=== PATIENT | female | born 1955 | race African-American/Black ===

== ENCOUNTER 2020-10-23 00:37 | Emergency (ER) | payer MEDICARE, MEDICAID ==
[~2020-10-23] VITALS: Ht 167.6 cm; Wt 68.0 kg
[2020-10-23 00:37] VITALS: BP 167/64
[~2020-10-23 00:37] MED LIST: AML5T PO; BENA20TA14 PO; NOR7.5T PO; OMEP20CA74 PO; PREG25CA PO; SOLI5TAB6 PO; TERI14TA OR; TIZA4CAP7 PO
[2020-10-23 04:25] LABS: Urine Bacteria MANY /hpf (None Seen); Urine Blood Negative /uL (Negative); Urine Mucus FEW (None Seen); Urine Specific Gravity 1.018 (1.001-1.035); Urine WBC 269 /hpf (0 - 5)
[2020-10-23] MEDS ORDERED: cefTRIAXone 1GM/50ML D5W 50 ML IV ONE (05:15)
[2020-10-23] MEDS ORDERED: SODIUM CHLORIDE 0.9% 1,000 ML IV ONE (05:15)
[2020-10-23] MEDS ORDERED: CIPROFLOXACIN 400MG/200ML 200 ML IV ONE (05:15)
== END 2020-10-23 06:48 | disposition home or self-care (01) ==
LOC: ER 00:38
DX: N39.0 Urinary tract infection, site not specified (principal); G35 Multiple sclerosis; I10 Essential (primary) hypertension; Z87.891 Personal history of nicotine dependence
CPT/HCPCS: 81001; 96365; 96368; 99284; J0696; J0744

== ENCOUNTER 2021-02-17 23:11 | Inpatient (IN) | payer MEDICARE, MEDICAID ==
[~2021-02-17] VITALS: Ht 175.3 cm; Wt 57.1 kg
[2021-02-18 00:48] LABS: Lymphocytes # (auto) 0.6 10 ^3/uL (0.4-5.4); Monocytes # (auto) 0.4 10 ^3/uL (0-1.3); Red Blood Cells 3.93 10^6/uL (4.0-5.20)
[2021-02-18 00:51] LABS: Basophils # (auto) 0 10 ^3/uL (0-0.2); Basophils % (auto) 0.8 % (0.0-2.0); Eosinophils # (auto) 0.1 10 ^3/uL (0-0.8); Hematocrit 32.1 % (36.0-46.0); Hemoglobin 10.5 g/dL (12.2-16.2); Lymphocytes % (auto) 11.7 % (10.0-50.0); Mean Corpuscular Hemoglobin 26.8 pg (28.0-32.0); Mean Corpuscular Hgb Conc. 32.8 g/dL (32.0-36.0); Mean Corpuscular Volume 81.7 fL (80.0-100.0); Neutrophils # (auto) 4.2 10 ^3/uL (1.6-8.6); Neutrophils % (auto) 79.5 % (37.0-80.0); Nucleated Red Blood Cells % 0.1 %; Red Cell Distribution Width 16.8 % (11.8-14.3); White Blood Cell 5.2 10^3/uL (4.4-10.8)
[2021-02-18 00:59] LABS: Alanine Aminotransferase 229 U/L (13-56); Albumin 2.6 g/dL (3.4-5.0); Anion Gap 4 (5-15); Aspartate Aminotransferase 199 U/L (15-37); BUN/Creatinine Ratio 25.5; Blood Urea Nitrogen 14 mg/dL (7-18); Calcium 9.4 mg/dL (8.5-10.1); Carbon Dioxide 26 mmol/L (21-32); Chloride 111 mmol/L (98-107); GFR African American 144 mL/min; GFR Non-African American 119 mL/min; Glucose 70 mg/dL (74-106); Lipase 73 U/L (73-393); Magnesium 1.9 mg/dL (1.6-2.6); Potassium 4.9 mmol/L (3.5-5.1); Sodium 141 mmol/L (136-145)
[2021-02-18 01:05] LABS: Alkaline Phosphatase 318 U/L (45-117); Bilirubin, Total 0.5 mg/dL (0.2-1.0); Total Protein 7.1 g/dL (6.4-8.2)
[2021-02-18] MEDS ORDERED: IOHEXOL 300 MG/ML 100ML BOTTLE IJ ONE (01:37)
[2021-02-18] MEDS ORDERED: SODIUM CHLORIDE 0.9% 1,000 ML IV ONE (02:30)
[2021-02-18] MEDS ORDERED: CEFEPIME 2 GM in SODIUM CHL 0.9% 50 ML IV ONE (02:30)
[2021-02-18] MEDS ORDERED: VANCOMYCIN 1GM/250ML 250 ML IV ONE (02:30)
[2021-02-18 02:42] LABS: Alcohol, Urine < 3.0 mg/dL (0-10); Amphetamine Screen, Urine NEGATIVE (NEGATIVE); Barbiturate Scree,Urine NEGATIVE (NEGATIVE); Benzodiazephine Screen, Urine NEGATIVE (NEGATIVE); Cannabinoid Screen, Urine NEGATIVE (NEGATIVE); Cocaine Screen, Urine NEGATIVE (NEGATIVE); Opiate Scree,Urine NEGATIVE (NEGATIVE); Phencyclidine Screen, Urine NEGATIVE (NEGATIVE)
[2021-02-18] MEDS ORDERED: PIPERACILLIN-TAZOB 3.375GM 100 ML IV ONE (03:00)
[2021-02-18 03:06] LABS: Urine Bacteria FEW /hpf (None Seen); Urine Blood Negative /uL (Negative); Urine Mucus FEW (None Seen); Urine Specific Gravity 1.019 (1.001-1.035); Urine WBC 6 /hpf (0 - 5); Urine WBC Clumps PRESENT /hpf (None Seen)
[2021-02-18] MEDS ORDERED: ONDANSETRON HCL 4 MG/2 ML VIAL IV PRN (07:00)
[2021-02-18] MEDS: PANTOPRAZOLE 40 MG TAB PO SCH (10:00)
[2021-02-18] MEDS ORDERED: VESICARE 5 MG PO SCH (10:00)
[2021-02-18] MEDS ORDERED: AUBAGIO 14 MG PO SCH ×2 (10:00)
[2021-02-18] MEDS: OXYBUTYNIN CHL 5 MG TAB PO SCH ×2 (10:00→22:00)
[2021-02-18] MEDS: amLODIPine BESYLATE 5 MG TAB PO SCH (10:00)
[2021-02-18] MEDS: ENOXAPARIN SOD 40 MG/0.4 ML SYRINGE SC SCH (10:26)
[2021-02-18 11:38] LABS: Folate (Folic Acid) 6.07 ng/mL (5.38-24)
[2021-02-18] MEDS: BACLOFEN 10 MG TAB PO SCH ×2 (14:00→22:00)
[2021-02-19] MEDS: BACLOFEN 10 MG TAB PO SCH ×3 (06:00→22:30)
[2021-02-19 06:59] LABS: INR 1.01 (0.9-1.15)
[2021-02-19 07:04] LABS: Basophils # (auto) 0 10 ^3/uL (0-0.2); Eosinophils # (auto) 0 10 ^3/uL (0-0.8); Lymphocytes # (auto) 0.6 10 ^3/uL (0.4-5.4); Monocytes # (auto) 0.5 10 ^3/uL (0-1.3); Red Blood Cells 3.69 10^6/uL (4.0-5.20)
[2021-02-19 07:05] LABS: Basophils % (auto) 0.7 % (0.0-2.0); Eosinophils % (auto) 0.7 % (0.0-7.0); Hemoglobin 9.8 g/dL (12.2-16.2); Lymphocytes % (auto) 12.4 % (10.0-50.0); Mean Corpuscular Hemoglobin 26.5 pg (28.0-32.0); Mean Corpuscular Hgb Conc. 32.5 g/dL (32.0-36.0); Mean Corpuscular Volume 81.3 fL (80.0-100.0); Monocytes % (auto) 10.9 % (0.0-12.0); Neutrophils # (auto) 3.5 10 ^3/uL (1.6-8.6); Neutrophils % (auto) 75.3 % (37.0-80.0); Red Cell Distribution Width 16.7 % (11.8-14.3); White Blood Cell 4.7 10^3/uL (4.4-10.8)
[2021-02-19 07:14] LABS: Albumin 2.3 g/dL (3.4-5.0); BUN/Creatinine Ratio 26.2; Magnesium 1.9 mg/dL (1.6-2.6); Potassium 3.9 mmol/L (3.5-5.1)
[2021-02-19 07:22] LABS: Bilirubin, Total 0.6 mg/dL (0.2-1.0); Total Protein 6.1 g/dL (6.4-8.2)
[2021-02-19] MEDS ORDERED: DEXTROSE (50%) 50ML SYRG IV ONE (07:30)
[2021-02-19] MEDS ORDERED: DEXTROSE 50% SYRINGE 50 ML IV ONE (07:33)
[2021-02-19] MEDS: D5W/SOD CHL 0.45% 1,000 ML IV SCH ×2 (07:48→20:52)
[2021-02-19] MEDS: amLODIPine BESYLATE 5 MG TAB PO SCH (10:00)
[2021-02-19] MEDS: OXYBUTYNIN CHL 5 MG TAB PO SCH ×2 (10:00→22:29)
[2021-02-19] MEDS: PANTOPRAZOLE 40 MG TAB PO SCH (10:00)
[2021-02-19] MEDS: ENOXAPARIN SOD 40 MG/0.4 ML SYRINGE SC SCH (10:37)
[2021-02-19] MEDS ORDERED: ERTAPENEM SOD INJ 1 GM in SODIUM CHL 0.9% 50 ML IV ONE (14:30)
[2021-02-19] MEDS ORDERED: MAGNESIUM SULFATE 1GM/100ML 100 ML IV ONE (14:30)
[2021-02-20 03:50] LABS: Basophils # (auto) 0 10 ^3/uL (0-0.2); Basophils % (auto) 0.4 % (0.0-2.0); Hematocrit 27.1 % (36.0-46.0); Hemoglobin 8.9 g/dL (12.2-16.2); Monocytes # (auto) 0.5 10 ^3/uL (0-1.3); White Blood Cell 5.7 10^3/uL (4.4-10.8)
[2021-02-20 03:52] LABS: Eosinophils # (auto) 0 10 ^3/uL (0-0.8); Eosinophils % (auto) 0.8 % (0.0-7.0); Lymphocytes # (auto) 0.5 10 ^3/uL (0.4-5.4); Lymphocytes % (auto) 9.5 % (10.0-50.0); Mean Corpuscular Hemoglobin 26.7 pg (28.0-32.0); Mean Corpuscular Hgb Conc. 32.8 g/dL (32.0-36.0); Mean Corpuscular Volume 81.4 fL (80.0-100.0); Monocytes % (auto) 9.4 % (0.0-12.0); Neutrophils # (auto) 4.6 10 ^3/uL (1.6-8.6); Neutrophils % (auto) 79.9 % (37.0-80.0); Nucleated Red Blood Cells % 0.2 %; Red Blood Cells 3.33 10^6/uL (4.0-5.20); Red Cell Distribution Width 16.8 % (11.8-14.3)
[2021-02-20 04:13] LABS: Albumin 2.1 g/dL (3.4-5.0); Calcium 8.4 mg/dL (8.5-10.1); Potassium 3.4 mmol/L (3.5-5.1)
[2021-02-20 04:16] LABS: BUN/Creatinine Ratio 22.8; Magnesium 2.2 mg/dL (1.6-2.6)
[2021-02-20 04:19] LABS: Bilirubin, Total 0.4 mg/dL (0.2-1.0); Total Protein 5.7 g/dL (6.4-8.2)
[2021-02-20] MEDS: BACLOFEN 10 MG TAB PO SCH ×3 (06:13→21:18)
[2021-02-20] MEDS ORDERED: LORazepam 2MG/ML-1ML VIAL IV PRN (09:15)
[2021-02-20] MEDS: ERTAPENEM SOD INJ 1 GM in SODIUM CHL 0.9% 50 ML IV SCH (10:46)
[2021-02-20] MEDS: OXYBUTYNIN CHL 5 MG TAB PO SCH ×2 (10:47→21:18)
[2021-02-20] MEDS: PANTOPRAZOLE 40 MG/10 ML VIAL INJ IV SCH (10:47)
[2021-02-20] MEDS: ENOXAPARIN SOD 40 MG/0.4 ML SYRINGE SC SCH (10:48)
[2021-02-20] MEDS: D5W/SOD CHL 0.45% 1,000 ML IV SCH ×2 (10:48→23:30)
[2021-02-20 12:55] VITALS: BP 126/70
[2021-02-20] MEDS ORDERED: GADOTERATE MEG 10 MMOL/20ml INJ (0.5MMOL/ml) IV ONE (13:35)
[2021-02-20 13:45] LABS: % Iron Saturation 21.5 % (15-50)
[2021-02-20] MEDS: POTASSIUM CHL 20MEQ/100ML 100 ML IV SCH ×2 (15:00→17:56)
[2021-02-20 17:00] VITALS: BP 147/77
[2021-02-20] MEDS ORDERED: POTASSIUM CHL 20MEQ/100ML 100 ML IV SCH (20:00)
[2021-02-21 05:14] LABS: Basophils # (auto) 0 10 ^3/uL (0-0.2); Hemoglobin 9.6 g/dL (12.2-16.2); Lymphocytes # (auto) 0.6 10 ^3/uL (0.4-5.4); Monocytes # (auto) 0.6 10 ^3/uL (0-1.3); Monocytes % (auto) 9.5 % (0.0-12.0); White Blood Cell 6.4 10^3/uL (4.4-10.8)
[2021-02-21 05:18] LABS: Basophils % (auto) 0.4 % (0.0-2.0); Eosinophils # (auto) 0 10 ^3/uL (0-0.8); Eosinophils % (auto) 0.7 % (0.0-7.0); Mean Corpuscular Hemoglobin 27.4 pg (28.0-32.0); Mean Corpuscular Hgb Conc. 33.2 g/dL (32.0-36.0); Mean Corpuscular Volume 82.4 fL (80.0-100.0); Neutrophils # (auto) 5.2 10 ^3/uL (1.6-8.6); Neutrophils % (auto) 80.4 % (37.0-80.0); Nucleated Red Blood Cells % 0.2 %; Red Blood Cells 3.52 10^6/uL (4.0-5.20); Red Cell Distribution Width 17.5 % (11.8-14.3)
[2021-02-21 05:30] VITALS: BP 145/76
[2021-02-21 05:40] LABS: Albumin 2.2 g/dL (3.4-5.0); Calcium 8.8 mg/dL (8.5-10.1); Magnesium 2.1 mg/dL (1.6-2.6); Potassium 3.7 mmol/L (3.5-5.1)
[2021-02-21 05:42] LABS: BUN/Creatinine Ratio 23.8
[2021-02-21 05:45] LABS: Bilirubin, Total 0.6 mg/dL (0.2-1.0); Total Protein 6.4 g/dL (6.4-8.2)
[2021-02-21] MEDS: BACLOFEN 10 MG TAB PO SCH ×3 (05:58→21:58)
[2021-02-21 09:00] VITALS: BP 107/71
[2021-02-21] MEDS: amLODIPine BESYLATE 5 MG TAB PO SCH (10:00)
[2021-02-21] MEDS: OXYBUTYNIN CHL 5 MG TAB PO SCH ×2 (11:24→21:58)
[2021-02-21] MEDS: PANTOPRAZOLE 40 MG/10 ML VIAL INJ IV SCH (11:25)
[2021-02-21] MEDS: ENOXAPARIN SOD 40 MG/0.4 ML SYRINGE SC SCH (11:25)
[2021-02-21] MEDS: ERTAPENEM SOD INJ 1 GM in SODIUM CHL 0.9% 50 ML IV SCH (11:38)
[2021-02-21 13:00] VITALS: BP 147/68
[2021-02-21 17:08] VITALS: BP 131/64
[2021-02-21] MEDS: D5W/SOD CHL 0.45% 1,000 ML IV SCH (18:26)
[2021-02-21 22:00] VITALS: BP 147/76
[2021-02-22] MEDS: D5W/SOD CHL 0.45% 1,000 ML IV SCH ×2 (02:10→10:47)
[2021-02-22 05:00] VITALS: BP 141/74
[2021-02-22 05:41] LABS: Basophils # (auto) 0.1 10 ^3/uL (0-0.2); Basophils % (auto) 1.3 % (0.0-2.0); Eosinophils # (auto) 0.1 10 ^3/uL (0-0.8); Eosinophils % (auto) 2.1 % (0.0-7.0); Hematocrit 29.4 % (36.0-46.0); Hemoglobin 9.7 g/dL (12.2-16.2); Lymphocytes # (auto) 0.7 10 ^3/uL (0.4-5.4); Lymphocytes % (auto) 12.5 % (10.0-50.0); Mean Corpuscular Hemoglobin 27.3 pg (28.0-32.0); Mean Corpuscular Hgb Conc. 32.9 g/dL (32.0-36.0); Mean Corpuscular Volume 82.8 fL (80.0-100.0); Monocytes # (auto) 0.6 10 ^3/uL (0-1.3); Monocytes % (auto) 10.5 % (0.0-12.0); Neutrophils # (auto) 4.1 10 ^3/uL (1.6-8.6); Neutrophils % (auto) 73.6 % (37.0-80.0); Nucleated Red Blood Cells % 0.2 %; Red Blood Cells 3.55 10^6/uL (4.0-5.20); Red Cell Distribution Width 17.9 % (11.8-14.3); White Blood Cell 5.6 10^3/uL (4.4-10.8)
[2021-02-22 05:46] LABS: Potassium 3.4 mmol/L (3.5-5.1)
[2021-02-22 05:54] LABS: Albumin 1.9 g/dL (3.4-5.0); BUN/Creatinine Ratio 27.8; Bilirubin, Total 0.5 mg/dL (0.2-1.0); Calcium 8.5 mg/dL (8.5-10.1); Total Protein 5.9 g/dL (6.4-8.2)
[2021-02-22] MEDS: BACLOFEN 10 MG TAB PO SCH ×3 (06:16→21:12)
[2021-02-22 09:02] VITALS: BP 126/66
[2021-02-22] MEDS: TERIFLUNOMIDE 14 MG PO SCH (10:00)
[2021-02-22] MEDS: ERTAPENEM SOD INJ 1 GM in SODIUM CHL 0.9% 50 ML IV SCH (10:42)
[2021-02-22] MEDS: ENOXAPARIN SOD 40 MG/0.4 ML SYRINGE SC SCH (10:43)
[2021-02-22] MEDS: PANTOPRAZOLE 40 MG/10 ML VIAL INJ IV SCH (10:43)
[2021-02-22] MEDS: OXYBUTYNIN CHL 5 MG TAB PO SCH ×2 (10:43→21:12)
[2021-02-22] MEDS: amLODIPine BESYLATE 5 MG TAB PO SCH (10:43)
[2021-02-22 13:00] VITALS: BP 129/71
[2021-02-22] MEDS ORDERED: POTASSIUM EFFERVESENT TAB 25 MEQ PO ONE (14:30)
[2021-02-22 16:42] VITALS: BP 127/74
[2021-02-22] MEDS: Ensure HIGH Protein Chocolate 8oz Bottle PO SCH (18:41)
[2021-02-22] MEDS: ACETAMINOPHEN 500 MG TAB PO PRN (21:12)
[2021-02-22 22:00] VITALS: BP 135/71
[2021-02-23] MEDS: D5W/SOD CHL 0.45% 1,000 ML IV SCH ×2 (02:10→18:10)
[2021-02-23 05:00] VITALS: BP 136/56
[2021-02-23 05:13] LABS: Basophils # (auto) 0 10 ^3/uL (0-0.2); Eosinophils # (auto) 0.1 10 ^3/uL (0-0.8); Hemoglobin 9.6 g/dL (12.2-16.2); Monocytes # (auto) 0.4 10 ^3/uL (0-1.3)
[2021-02-23 05:20] LABS: Basophils % (auto) 0.6 % (0.0-2.0); Eosinophils % (auto) 2.2 % (0.0-7.0); Hematocrit 29.3 % (36.0-46.0); Lymphocytes # (auto) 0.9 10 ^3/uL (0.4-5.4); Lymphocytes % (auto) 17.2 % (10.0-50.0); Mean Corpuscular Hemoglobin 26.6 pg (28.0-32.0); Mean Corpuscular Hgb Conc. 32.7 g/dL (32.0-36.0); Mean Corpuscular Volume 81.5 fL (80.0-100.0); Monocytes % (auto) 8.5 % (0.0-12.0); Neutrophils # (auto) 3.6 10 ^3/uL (1.6-8.6); Neutrophils % (auto) 71.5 % (37.0-80.0); Nucleated Red Blood Cells % 0.2 %
[2021-02-23 05:31] LABS: Potassium 3.5 mmol/L (3.5-5.1)
[2021-02-23 05:39] LABS: Albumin 1.8 g/dL (3.4-5.0); BUN/Creatinine Ratio 17.9; Bilirubin, Total 0.5 mg/dL (0.2-1.0); Calcium 8.4 mg/dL (8.5-10.1); Total Protein 5.7 g/dL (6.4-8.2)
[2021-02-23] MEDS: BACLOFEN 10 MG TAB PO SCH ×3 (05:46→22:17)
[2021-02-23 07:54] VITALS: BP 110/74
[2021-02-23] MEDS: TERIFLUNOMIDE 14 MG PO SCH (10:00)
[2021-02-23] MEDS: PANTOPRAZOLE 40 MG/10 ML VIAL INJ IV SCH (11:41)
[2021-02-23] MEDS: ERTAPENEM SOD INJ 1 GM in SODIUM CHL 0.9% 50 ML IV SCH (11:41)
[2021-02-23] MEDS ORDERED: TOLT2CAP PO (11:43)
[2021-02-23] MEDS ORDERED: [UNRECOGNIZED DRUG - CODE] PO (11:43)
[2021-02-23] MEDS: OXYBUTYNIN CHL 5 MG TAB PO SCH ×2 (11:46→22:17)
[2021-02-23] MEDS: ENOXAPARIN SOD 40 MG/0.4 ML SYRINGE SC SCH (11:47)
[2021-02-23] MEDS: amLODIPine BESYLATE 5 MG TAB PO SCH (11:47)
[2021-02-23] MEDS: Ensure HIGH Protein Chocolate 8oz Bottle PO SCH ×3 (11:52→18:00)
[2021-02-23 12:00] VITALS: BP 143/80
[2021-02-23 16:00] VITALS: BP 156/74
[2021-02-23] MEDS ORDERED: cloNIDine HCL 0.1 MG TAB PO PRN (18:45)
[2021-02-23 20:00] VITALS: BP 131/80
[2021-02-23 22:00] VITALS: BP 131/80
[2021-02-24] MEDS: D5W/SOD CHL 0.45% 1,000 ML IV SCH ×2 (01:40→21:00)
[2021-02-24 05:00] VITALS: BP 133/75
[2021-02-24 05:17] LABS: Basophils # (auto) 0 10 ^3/uL (0-0.2); Basophils % (auto) 0.3 % (0.0-2.0); Eosinophils # (auto) 0.1 10 ^3/uL (0-0.8); Eosinophils % (auto) 2.1 % (0.0-7.0); Hematocrit 26.2 % (36.0-46.0); Hemoglobin 8.7 g/dL (12.2-16.2); Lymphocytes # (auto) 0.8 10 ^3/uL (0.4-5.4); Lymphocytes % (auto) 13.8 % (10.0-50.0); Mean Corpuscular Hemoglobin 27.3 pg (28.0-32.0); Mean Corpuscular Hgb Conc. 33.3 g/dL (32.0-36.0); Mean Corpuscular Volume 81.8 fL (80.0-100.0); Monocytes # (auto) 0.5 10 ^3/uL (0-1.3); Monocytes % (auto) 9.4 % (0.0-12.0); Neutrophils # (auto) 4.3 10 ^3/uL (1.6-8.6); Neutrophils % (auto) 74.4 % (37.0-80.0); Nucleated Red Blood Cells % 0.1 %; Red Cell Distribution Width 17.4 % (11.8-14.3); White Blood Cell 5.8 10^3/uL (4.4-10.8)
[2021-02-24 05:28] LABS: BUN/Creatinine Ratio 20.6; Calcium 8.3 mg/dL (8.5-10.1); Potassium 3.2 mmol/L (3.5-5.1)
[2021-02-24] MEDS: BACLOFEN 10 MG TAB PO SCH ×3 (05:47→22:00)
[2021-02-24] MEDS: Ensure HIGH Protein Chocolate 8oz Bottle PO SCH ×3 (08:00→18:00)
[2021-02-24 09:00] VITALS: BP 147/85
[2021-02-24] MEDS ORDERED: POTASSIUM CHL 20 Meq TABLET PO ONE (10:30)
[2021-02-24] MEDS ORDERED: DOCU-94 PO (12:08)
[2021-02-24 13:00] VITALS: BP 140/74
[2021-02-24] MEDS: amLODIPine BESYLATE 5 MG TAB PO SCH (13:05)
[2021-02-24] MEDS: ENOXAPARIN SOD 40 MG/0.4 ML SYRINGE SC SCH (13:05)
[2021-02-24] MEDS: PANTOPRAZOLE 40 MG/10 ML VIAL INJ IV SCH (13:06)
[2021-02-24] MEDS: ERTAPENEM SOD INJ 1 GM in SODIUM CHL 0.9% 50 ML IV SCH (13:06)
[2021-02-24] MEDS: OXYBUTYNIN CHL 5 MG TAB PO SCH ×2 (13:06→22:00)
[2021-02-24] MEDS: TERIFLUNOMIDE 14 MG PO SCH (13:42)
[2021-02-24] MEDS ORDERED: POTASSIUM EFFERVESENT TAB 25 MEQ PO ONE (15:45)
[2021-02-24 16:53] VITALS: BP 154/74
[2021-02-24 22:00] VITALS: BP 138/77
[2021-02-25 05:00] VITALS: BP 146/73
[2021-02-25 05:56] LABS: BUN/Creatinine Ratio 17.1; Calcium 8.9 mg/dL (8.5-10.1); Potassium 3.5 mmol/L (3.5-5.1)
[2021-02-25] MEDS: BACLOFEN 10 MG TAB PO SCH ×3 (06:00→23:12)
[2021-02-25] MEDS: Ensure HIGH Protein Chocolate 8oz Bottle PO SCH ×3 (08:00→18:00)
[2021-02-25] MEDS ORDERED: IOHEXOL 350 MG/ML 100ML IJ ONE (08:33)
[2021-02-25 09:00] VITALS: BP 129/76
[2021-02-25] MEDS: ENOXAPARIN SOD 40 MG/0.4 ML SYRINGE SC SCH (10:00)
[2021-02-25] MEDS ORDERED: FUROSEMIDE 40 MG/4 ML VIAL IV ONE (10:15)
[2021-02-25] MEDS ORDERED: POTASSIUM CHL 20 Meq TABLET PO ONE (10:15)
[2021-02-25] MEDS: ERTAPENEM SOD INJ 1 GM in SODIUM CHL 0.9% 50 ML IV SCH (12:26)
[2021-02-25] MEDS: TERIFLUNOMIDE 14 MG PO SCH (12:26)
[2021-02-25] MEDS: amLODIPine BESYLATE 5 MG TAB PO SCH (12:36)
[2021-02-25] MEDS: ACETAMINOPHEN 500 MG TAB PO PRN (12:36)
[2021-02-25 13:00] VITALS: BP 141/84
[2021-02-25 17:00] VITALS: BP 134/80
[2021-02-25 22:00] VITALS: BP 136/85
[2021-02-25] MEDS: PREGABALIN CAPSULE 75 MG CAP PO SCH (23:12)
[2021-02-25] MEDS: DOCUSATE SOD 100 MG CAP PO SCH (23:12)
[2021-02-25] MEDS: TOLTERODINE TARTRATE 1 MG TAB PO SCH (23:13)
[2021-02-26] VITALS (7 sets, daily range): BP systolic 102–127; BP diastolic 49–80
[2021-02-26 05:19] LABS: Hematocrit 28.7 % (36.0-46.0); Hemoglobin 9.5 g/dL (12.2-16.2)
[2021-02-26 05:41] LABS: Albumin 2.1 g/dL (3.4-5.0); Calcium 8.9 mg/dL (8.5-10.1); Potassium 3.6 mmol/L (3.5-5.1)
[2021-02-26 05:45] LABS: BUN/Creatinine Ratio 16.7; Bilirubin, Total 0.5 mg/dL (0.2-1.0); Total Protein 6.5 g/dL (6.4-8.2)
[2021-02-26] MEDS: BACLOFEN 10 MG TAB PO SCH ×3 (06:53→21:46)
[2021-02-26] MEDS ORDERED: PANTOPRAZOLE 40 MG TAB PO SCH (10:00)
[2021-02-26] MEDS: TOLTERODINE TARTRATE 1 MG TAB PO SCH ×2 (10:00→21:44)
[2021-02-26] MEDS ORDERED: FUROSEMIDE 20 MG/2 ML VIAL IV ONE (10:15)
[2021-02-26] MEDS ORDERED: POTASSIUM CHL 20 Meq TABLET PO ONE (10:15)
[2021-02-26] MEDS: TERIFLUNOMIDE 14 MG PO SCH (10:22)
[2021-02-26] MEDS: amLODIPine BESYLATE 5 MG TAB PO SCH (10:22)
[2021-02-26] MEDS: PREGABALIN CAPSULE 75 MG CAP PO SCH ×2 (10:22→21:46)
[2021-02-26] MEDS: ERTAPENEM SOD INJ 1 GM in SODIUM CHL 0.9% 50 ML IV SCH (10:22)
[2021-02-26] MEDS: Ensure HIGH Protein Chocolate 8oz Bottle PO SCH ×3 (10:23→19:32)
[2021-02-26] MEDS: ENOXAPARIN SOD 40 MG/0.4 ML SYRINGE SC SCH (10:23)
[2021-02-26] MEDS: DOCUSATE SOD 100 MG CAP PO SCH ×2 (10:23→21:42)
[2021-02-27] VITALS (60 sets, daily range): BP systolic 71–132; BP diastolic 44–77
[2021-02-27] MEDS: BACLOFEN 10 MG TAB PO SCH ×2 (06:00→06:20)
[2021-02-27 06:25] LABS: Calcium 8.8 mg/dL (8.5-10.1); Potassium 3.8 mmol/L (3.5-5.1)
[2021-02-27 06:27] LABS: BUN/Creatinine Ratio 29.1; Bilirubin, Total 0.5 mg/dL (0.2-1.0); Total Protein 6.3 g/dL (6.4-8.2)
[2021-02-27] MEDS ORDERED: NALOXONE HCL 0.4 MG/ML VIAL ONE (06:41)
[2021-02-27] MEDS ORDERED: SUCCINYLCHOLINE CHLORIDE 20 MG/ML 10ML VIAL IV ONE ×2 (06:45→07:00)
[2021-02-27] MEDS ORDERED: ETOMIDATE (2MG/ML) 20ML VIAL IV ONE ×2 (06:46→07:00)
[2021-02-27] MEDS ORDERED: MIDAZOLAM DRIP 50 mg/50mL 50 ML IV SCH ×3 (07:00→10:45)
[2021-02-27] MEDS ORDERED: NALOXONE HCL 0.4 MG/ML VIAL IV ONE (07:00)
[2021-02-27] MEDS ORDERED: PHENYLEPHRINE IV 250 ML IV SCH (07:00)
[2021-02-27] MEDS: NOREPINEPHRINE 8 MG/250ML KIT 250 ML IV SCH (08:00)
[2021-02-27] MEDS: MIDAZOLAM DRIP 50 mg/50mL 50 ML IV SCH ×2 (08:00→12:18)
[2021-02-27] MEDS ORDERED: NOREPINEPHRINE 8 MG/250ML KIT 250 ML IV ONE (08:07)
[2021-02-27] MEDS: DOCUSATE SOD 100 MG CAP PO SCH (10:00)
[2021-02-27] MEDS ORDERED: FUROSEMIDE 20 MG/2 ML VIAL IV SCH (10:00)
[2021-02-27] MEDS: Pro-Stat SF 30ml Vanilla PO SCH (10:00)
[2021-02-27 10:22] LABS: Eosinophils # (auto) 0.1 10 ^3/uL (0-0.8); Lymphocytes # (auto) 0.8 10 ^3/uL (0.4-5.4); Monocytes # (auto) 0.6 10 ^3/uL (0-1.3)
[2021-02-27 10:24] LABS: Basophils # (auto) 0 10 ^3/uL (0-0.2); Basophils % (auto) 0.8 % (0.0-2.0); Hematocrit 28.6 % (36.0-46.0); Hemoglobin 9.4 g/dL (12.2-16.2); Lymphocytes % (auto) 14.4 % (10.0-50.0); Mean Corpuscular Hemoglobin 26.7 pg (28.0-32.0); Mean Corpuscular Hgb Conc. 32.8 g/dL (32.0-36.0); Mean Corpuscular Volume 81.3 fL (80.0-100.0); Monocytes % (auto) 10.8 % (0.0-12.0); Neutrophils # (auto) 3.8 10 ^3/uL (1.6-8.6); Nucleated Red Blood Cells % 0.2 %; Red Blood Cells 3.51 10^6/uL (4.0-5.20); Red Cell Distribution Width 16.9 % (11.8-14.3); White Blood Cell 5.2 10^3/uL (4.4-10.8)
[2021-02-27] MEDS ORDERED: PANTOPRAZOLE 40 MG/10 ML VIAL INJ IV ONE (10:45)
[2021-02-27] MEDS ORDERED: D5W/SOD CHL 0.45% 1,000 ML IV SCH (10:45)
[2021-02-27] MEDS: TERIFLUNOMIDE 14 MG PO SCH (10:57)
[2021-02-27] MEDS: ERTAPENEM SOD INJ 1 GM in SODIUM CHL 0.9% 50 ML IV SCH (10:57)
[2021-02-27] MEDS: ENOXAPARIN SOD 40 MG/0.4 ML SYRINGE SC SCH (10:58)
[2021-02-27 12:30] LABS: Urine Bacteria MANY /hpf (None Seen); Urine Blood 2+ /uL (Negative); Urine Budding Yeast LOADED /hpf (None Seen); Urine Hyaline Cast FEW /lpf (0 - 2); Urine Mucus FEW (None Seen); Urine Specific Gravity 1.022 (1.001-1.035); Urine WBC 289 /hpf (0 - 5)
[2021-02-27] MEDS: D5W/SOD CHL 0.45% 1,000 ML IV SCH (13:28)
[2021-02-27] MEDS: DOCUSATE ORAL LIQUID 100 MG/10 ML UD GT SCH (22:30)
[2021-02-28] VITALS (102 sets, daily range): BP systolic 96–139; BP diastolic 58–86
[2021-02-28] MEDS: D5W/SOD CHL 0.45% 1,000 ML IV SCH ×2 (03:00→13:55)
[2021-02-28 05:00] LABS: Eosinophils # (auto) 0.1 10 ^3/uL (0-0.8); Hemoglobin 8.4 g/dL (12.2-16.2); Mean Corpuscular Hgb Conc. 34.1 g/dL (32.0-36.0); Monocytes # (auto) 0.9 10 ^3/uL (0-1.3); Nucleated Red Blood Cells % 0.1 %
[2021-02-28 05:02] LABS: Basophils # (auto) 0.1 10 ^3/uL (0-0.2); Basophils % (auto) 0.7 % (0.0-2.0); Eosinophils % (auto) 1.6 % (0.0-7.0); Hematocrit 24.7 % (36.0-46.0); Lymphocytes % (auto) 14.3 % (10.0-50.0); Mean Corpuscular Hemoglobin 27.6 pg (28.0-32.0); Monocytes % (auto) 13.2 % (0.0-12.0); Neutrophils % (auto) 70.2 % (37.0-80.0); Red Blood Cells 3.05 10^6/uL (4.0-5.20); Red Cell Distribution Width 17.5 % (11.8-14.3); White Blood Cell 7.1 10^3/uL (4.4-10.8)
[2021-02-28 05:04] LABS: Potassium 3.6 mmol/L (3.5-5.1)
[2021-02-28 05:13] LABS: Albumin 1.8 g/dL (3.4-5.0); BUN/Creatinine Ratio 33.8; Bilirubin, Total 0.5 mg/dL (0.2-1.0); Calcium 8.3 mg/dL (8.5-10.1); Magnesium 2.1 mg/dL (1.6-2.6)
[2021-02-28] MEDS: NOREPINEPHRINE 8 MG/250ML KIT 250 ML IV SCH (08:27)
[2021-02-28] MEDS ORDERED: PANTOPRAZOLE 40 MG/10 ML VIAL INJ IV SCH ×2 (10:00)
[2021-02-28] MEDS ORDERED: FUROSEMIDE 40 MG/4 ML VIAL IV ONE (10:30)
[2021-02-28] MEDS: Pro-Stat SF 30ml Vanilla PO SCH (10:38)
[2021-02-28] MEDS: DOCUSATE ORAL LIQUID 100 MG/10 ML UD GT SCH ×2 (10:46→22:00)
[2021-02-28] MEDS: PANTOPRAZOLE 40 MG/10 ML VIAL INJ IV SCH (11:04)
[2021-02-28] MEDS: ERTAPENEM SOD INJ 1 GM in SODIUM CHL 0.9% 50 ML IV SCH (11:04)
[2021-02-28] MEDS: TERIFLUNOMIDE 14 MG PO SCH (11:04)
[2021-02-28] MEDS: ENOXAPARIN SOD 40 MG/0.4 ML SYRINGE SC SCH (11:05)
[2021-02-28] MEDS: MIDAZOLAM DRIP 50 mg/50mL 50 ML IV SCH (12:00)
[2021-02-28] MEDS ORDERED: POTASSIUM CHL 20MEQ/100ML 100 ML IV ONE (13:15)
[2021-02-28] MEDS: ACCU-CHEK COMFORT CURVE STRIP VI SCH ×3 (14:11→22:00)
[2021-03-01] VITALS (100 sets, daily range): BP systolic 87–131; BP diastolic 49–80
[2021-03-01] MEDS: MIDAZOLAM DRIP 50 mg/50mL 50 ML IV SCH ×2 (00:37→21:00)
[2021-03-01] MEDS: ACCU-CHEK COMFORT CURVE STRIP VI SCH ×6 (02:00→22:00)
[2021-03-01] MEDS: D5W/SOD CHL 0.45% 1,000 ML IV SCH ×2 (03:30→18:14)
[2021-03-01 03:46] LABS: Basophils # (auto) 0 10 ^3/uL (0-0.2); Eosinophils # (auto) 0.1 10 ^3/uL (0-0.8); Eosinophils % (auto) 1.7 % (0.0-7.0); Lymphocytes # (auto) 0.9 10 ^3/uL (0.4-5.4); Nucleated Red Blood Cells % 0.1 %; White Blood Cell 6.9 10^3/uL (4.4-10.8)
[2021-03-01 03:48] LABS: Basophils % (auto) 0.4 % (0.0-2.0); Hematocrit 23.3 % (36.0-46.0); Hemoglobin 7.7 g/dL (12.2-16.2); Lymphocytes % (auto) 13.5 % (10.0-50.0); Mean Corpuscular Hemoglobin 26.7 pg (28.0-32.0); Mean Corpuscular Hgb Conc. 33.1 g/dL (32.0-36.0); Mean Corpuscular Volume 80.6 fL (80.0-100.0); Monocytes # (auto) 0.7 10 ^3/uL (0-1.3); Monocytes % (auto) 10.1 % (0.0-12.0); Neutrophils # (auto) 5.1 10 ^3/uL (1.6-8.6); Neutrophils % (auto) 74.3 % (37.0-80.0); Red Cell Distribution Width 17.3 % (11.8-14.3)
[2021-03-01 04:06] LABS: Albumin 1.7 g/dL (3.4-5.0); BUN/Creatinine Ratio 29.2; Calcium 8.3 mg/dL (8.5-10.1); Magnesium 1.9 mg/dL (1.6-2.6); Potassium 3.3 mmol/L (3.5-5.1)
[2021-03-01 04:08] LABS: Bilirubin, Total 0.6 mg/dL (0.2-1.0)
[2021-03-01] MEDS: PANTOPRAZOLE 40 MG/10 ML VIAL INJ IV SCH (09:52)
[2021-03-01] MEDS: ERTAPENEM SOD INJ 1 GM in SODIUM CHL 0.9% 50 ML IV SCH (09:52)
[2021-03-01] MEDS: DOCUSATE ORAL LIQUID 100 MG/10 ML UD GT SCH ×2 (09:52→22:00)
[2021-03-01] MEDS: ENOXAPARIN SOD 40 MG/0.4 ML SYRINGE SC SCH (09:53)
[2021-03-01] MEDS: TERIFLUNOMIDE 14 MG PO SCH (09:53)
[2021-03-01] MEDS: Pro-Stat SF 30ml Vanilla PO SCH (09:53)
[2021-03-01] MEDS ORDERED: FUROSEMIDE 20 MG/2 ML VIAL IV ONE (11:00)
[2021-03-01] MEDS: POTASSIUM CHL 20MEQ/100ML 100 ML IV SCH ×2 (11:08→12:49)
[2021-03-02] VITALS (102 sets, daily range): BP systolic 87–126; BP diastolic 53–84
[2021-03-02] MEDS: ACCU-CHEK COMFORT CURVE STRIP VI SCH ×6 (02:00→22:00)
[2021-03-02 04:06] LABS: Basophils # (auto) 0.1 10 ^3/uL (0-0.2); Basophils % (auto) 0.8 % (0.0-2.0); Eosinophils # (auto) 0.1 10 ^3/uL (0-0.8); Eosinophils % (auto) 1.5 % (0.0-7.0); Hematocrit 22.4 % (36.0-46.0); Hemoglobin 7.4 g/dL (12.2-16.2); Lymphocytes # (auto) 0.8 10 ^3/uL (0.4-5.4); Lymphocytes % (auto) 11.9 % (10.0-50.0); Mean Corpuscular Hemoglobin 26.7 pg (28.0-32.0); Mean Corpuscular Volume 80.9 fL (80.0-100.0); Monocytes # (auto) 0.5 10 ^3/uL (0-1.3); Monocytes % (auto) 7.4 % (0.0-12.0); Neutrophils # (auto) 5.2 10 ^3/uL (1.6-8.6); Neutrophils % (auto) 78.4 % (37.0-80.0); Red Blood Cells 2.77 10^6/uL (4.0-5.20); Red Cell Distribution Width 17.3 % (11.8-14.3); White Blood Cell 6.7 10^3/uL (4.4-10.8)
[2021-03-02 04:25] LABS: Albumin 1.7 g/dL (3.4-5.0); BUN/Creatinine Ratio 30.2; Calcium 8.6 mg/dL (8.5-10.1); Potassium 3.2 mmol/L (3.5-5.1)
[2021-03-02 04:28] LABS: Bilirubin, Total 0.7 mg/dL (0.2-1.0); Total Protein 6.3 g/dL (6.4-8.2)
[2021-03-02] MEDS: Pro-Stat SF 30ml Vanilla PO SCH (10:00)
[2021-03-02] MEDS: ENOXAPARIN SOD 40 MG/0.4 ML SYRINGE SC SCH (10:00)
[2021-03-02] MEDS: DOCUSATE ORAL LIQUID 100 MG/10 ML UD GT SCH ×2 (10:00→22:00)
[2021-03-02] MEDS: PANTOPRAZOLE 40 MG/10 ML VIAL INJ IV SCH (10:02)
[2021-03-02] MEDS: ERTAPENEM SOD INJ 1 GM in SODIUM CHL 0.9% 50 ML IV SCH (10:02)
[2021-03-02] MEDS: D5W/SOD CHL 0.45% 1,000 ML IV SCH ×2 (10:03→22:27)
[2021-03-02] MEDS: TERIFLUNOMIDE 14 MG PO SCH (10:03)
[2021-03-02] MEDS ORDERED: FUROSEMIDE 20 MG/2 ML VIAL IV ONE (11:30)
[2021-03-02] MEDS: POTASSIUM CHL 20MEQ/100ML 100 ML IV SCH ×3 (11:43→15:29)
[2021-03-02 13:31] LABS: Urine Bacteria NONE SEEN /hpf (None Seen); Urine Blood Negative /uL (Negative); Urine Budding Yeast LOADED /hpf (None Seen); Urine Mucus FEW (None Seen); Urine Specific Gravity 1.007 (1.001-1.035); Urine WBC 16 /hpf (0 - 5)
[2021-03-03] VITALS (99 sets, daily range): BP systolic 79–159; BP diastolic 27–88
[2021-03-03] MEDS: ACCU-CHEK COMFORT CURVE STRIP VI SCH ×6 (02:00→22:52)
[2021-03-03 04:14] LABS: Basophils # (auto) 0 10 ^3/uL (0-0.2); Eosinophils # (auto) 0.1 10 ^3/uL (0-0.8); Lymphocytes # (auto) 0.9 10 ^3/uL (0.4-5.4); Monocytes # (auto) 0.3 10 ^3/uL (0-1.3); Monocytes % (auto) 5.5 % (0.0-12.0); Neutrophils % (auto) 78.2 % (37.0-80.0); Red Cell Distribution Width 17.1 % (11.8-14.3)
[2021-03-03 04:17] LABS: Basophils % (auto) 0.3 % (0.0-2.0); Eosinophils % (auto) 1.7 % (0.0-7.0); Hematocrit 20.5 % (36.0-46.0); Lymphocytes % (auto) 14.3 % (10.0-50.0); Mean Corpuscular Hemoglobin 27.1 pg (28.0-32.0); Mean Corpuscular Hgb Conc. 33.5 g/dL (32.0-36.0); Mean Corpuscular Volume 81.1 fL (80.0-100.0); Neutrophils # (auto) 4.7 10 ^3/uL (1.6-8.6); Nucleated Red Blood Cells % 0.2 %; Red Blood Cells 2.52 10^6/uL (4.0-5.20)
[2021-03-03 04:25] LABS: Hemoglobin 6.9 g/dL (12.2-16.2)
[2021-03-03 04:34] LABS: Calcium 8.3 mg/dL (8.5-10.1); Potassium 3.6 mmol/L (3.5-5.1)
[2021-03-03 04:43] LABS: BUN/Creatinine Ratio 21.2
[2021-03-03] MEDS: MIDAZOLAM DRIP 50 mg/50mL 50 ML IV SCH (08:00)
[2021-03-03] MEDS: D5W/SOD CHL 0.45% 1,000 ML IV SCH (08:36)
[2021-03-03] MEDS: Pro-Stat SF 30ml Vanilla PO SCH (10:00)
[2021-03-03] MEDS: DOCUSATE ORAL LIQUID 100 MG/10 ML UD GT SCH ×2 (10:15→22:00)
[2021-03-03] MEDS: ENOXAPARIN SOD 40 MG/0.4 ML SYRINGE SC SCH (10:15)
[2021-03-03] MEDS: PANTOPRAZOLE 40 MG/10 ML VIAL INJ IV SCH (10:15)
[2021-03-03] MEDS: TERIFLUNOMIDE 14 MG PO SCH (10:16)
[2021-03-03] MEDS: ERTAPENEM SOD INJ 1 GM in SODIUM CHL 0.9% 50 ML IV SCH (11:00)
[2021-03-03] MEDS ORDERED: FUROSEMIDE 20 MG/2 ML VIAL IV ONE (13:15)
[2021-03-03] MEDS: POTASSIUM CHL 20MEQ/100ML 100 ML IV SCH ×2 (14:01→16:00)
[2021-03-04] VITALS (73 sets, daily range): BP systolic 100–150; BP diastolic 50–96
[2021-03-04] MEDS: MIDAZOLAM DRIP 50 mg/50mL 50 ML IV SCH
[2021-03-04] MEDS: ACCU-CHEK COMFORT CURVE STRIP VI SCH ×6 (01:00→22:08)
[2021-03-04] MEDS: D5W/SOD CHL 0.45% 1,000 ML IV SCH ×2 (02:37→20:28)
[2021-03-04 04:38] LABS: Basophils # (auto) 0 10 ^3/uL (0-0.2); Basophils % (auto) 0.2 % (0.0-2.0); Eosinophils # (auto) 0.1 10 ^3/uL (0-0.8); Eosinophils % (auto) 0.7 % (0.0-7.0); Hematocrit 26.3 % (36.0-46.0); Hemoglobin 8.9 g/dL (12.2-16.2); Lymphocytes % (auto) 12.5 % (10.0-50.0); Mean Corpuscular Hgb Conc. 33.8 g/dL (32.0-36.0); Mean Corpuscular Volume 82.9 fL (80.0-100.0); Monocytes # (auto) 0.8 10 ^3/uL (0-1.3); Monocytes % (auto) 9.7 % (0.0-12.0); Neutrophils # (auto) 6.3 10 ^3/uL (1.6-8.6); Neutrophils % (auto) 76.9 % (37.0-80.0); Nucleated Red Blood Cells % 0.2 %; Red Blood Cells 3.18 10^6/uL (4.0-5.20); Red Cell Distribution Width 17.9 % (11.8-14.3); White Blood Cell 8.2 10^3/uL (4.4-10.8)
[2021-03-04 04:53] LABS: BUN/Creatinine Ratio 17.5; Calcium 8.8 mg/dL (8.5-10.1); Magnesium 2.1 mg/dL (1.6-2.6); Potassium 3.3 mmol/L (3.5-5.1)
[2021-03-04] MEDS: Pro-Stat SF 30ml Vanilla PO SCH (10:00)
[2021-03-04] MEDS: TERIFLUNOMIDE 14 MG PO SCH (11:39)
[2021-03-04] MEDS: PANTOPRAZOLE 40 MG/10 ML VIAL INJ IV SCH (11:39)
[2021-03-04] MEDS: ENOXAPARIN SOD 40 MG/0.4 ML SYRINGE SC SCH (11:39)
[2021-03-04] MEDS: ERTAPENEM SOD INJ 1 GM in SODIUM CHL 0.9% 50 ML IV SCH (11:44)
[2021-03-04] MEDS: DOCUSATE ORAL LIQUID 100 MG/10 ML UD GT SCH ×2 (11:44→22:00)
[2021-03-04] MEDS: ENSURE CLEAR Apple 8oz Carton PO SCH (18:00)
[2021-03-04] MEDS: POTASSIUM CHL 20MEQ/100ML 100 ML IV SCH ×2 (18:30→20:29)
[2021-03-05] VITALS (17 sets, daily range): BP systolic 115–153; BP diastolic 57–75
[2021-03-05] MEDS: ACCU-CHEK COMFORT CURVE STRIP VI SCH ×6 (02:00→21:17)
[2021-03-05 05:08] LABS: Hematocrit 24.4 % (36.0-46.0); Hemoglobin 8.3 g/dL (12.2-16.2)
[2021-03-05 05:18] LABS: Potassium 3.6 mmol/L (3.5-5.1)
[2021-03-05 05:23] LABS: Albumin 1.6 g/dL (3.4-5.0); Calcium 8.8 mg/dL (8.5-10.1)
[2021-03-05 05:25] LABS: Bilirubin, Total 0.7 mg/dL (0.2-1.0); Total Protein 6.1 g/dL (6.4-8.2)
[2021-03-05 06:56] LABS: Urine Bacteria FEW /hpf (None Seen); Urine Blood Negative /uL (Negative); Urine Budding Yeast MODERATE /hpf (None Seen); Urine Mucus FEW (None Seen); Urine Specific Gravity 1.008 (1.001-1.035); Urine WBC 140 /hpf (0 - 5)
[2021-03-05] MEDS: D5W/SOD CHL 0.45% 1,000 ML IV SCH ×2 (08:03→21:57)
[2021-03-05] MEDS: Pro-Stat SF 30ml Vanilla PO SCH (09:10)
[2021-03-05] MEDS: ENSURE CLEAR Apple 8oz Carton PO SCH ×3 (09:10→17:53)
[2021-03-05] MEDS: DOCUSATE ORAL LIQUID 100 MG/10 ML UD GT SCH ×2 (10:00→21:07)
[2021-03-05] MEDS: TERIFLUNOMIDE 14 MG PO SCH (10:22)
[2021-03-05] MEDS: PANTOPRAZOLE 40 MG/10 ML VIAL INJ IV SCH (10:22)
[2021-03-05] MEDS: ERTAPENEM SOD INJ 1 GM in SODIUM CHL 0.9% 50 ML IV SCH (10:22)
[2021-03-05] MEDS: ENOXAPARIN SOD 40 MG/0.4 ML SYRINGE SC SCH (10:22)
[2021-03-06] MEDS: ACCU-CHEK COMFORT CURVE STRIP VI SCH ×6 (02:37→22:28)
[2021-03-06 05:00] VITALS: BP 140/73
[2021-03-06] MEDS: D5W/SOD CHL 0.45% 1,000 ML IV SCH (05:02)
[2021-03-06 06:17] LABS: Basophils # (auto) 0 10 ^3/uL (0-0.2); Eosinophils # (auto) 0.1 10 ^3/uL (0-0.8); Hemoglobin 8.1 g/dL (12.2-16.2); Nucleated Red Blood Cells % 0.2 %
[2021-03-06 06:20] LABS: Basophils % (auto) 0.3 % (0.0-2.0); Eosinophils % (auto) 1.3 % (0.0-7.0); Hematocrit 24.1 % (36.0-46.0); Lymphocytes % (auto) 15.7 % (10.0-50.0); Mean Corpuscular Hgb Conc. 33.6 g/dL (32.0-36.0); Mean Corpuscular Volume 83.2 fL (80.0-100.0); Monocytes # (auto) 0.8 10 ^3/uL (0-1.3); Monocytes % (auto) 12.7 % (0.0-12.0); Neutrophils # (auto) 4.3 10 ^3/uL (1.6-8.6); Red Blood Cells 2.89 10^6/uL (4.0-5.20); Red Cell Distribution Width 17.7 % (11.8-14.3); White Blood Cell 6.2 10^3/uL (4.4-10.8)
[2021-03-06 06:42] LABS: Albumin 1.7 g/dL (3.4-5.0); Calcium 8.7 mg/dL (8.5-10.1)
[2021-03-06 06:45] LABS: BUN/Creatinine Ratio 14.7
[2021-03-06 06:47] LABS: Bilirubin, Total 0.5 mg/dL (0.2-1.0); Total Protein 6.1 g/dL (6.4-8.2)
[2021-03-06 08:54] VITALS: BP 139/81
[2021-03-06] MEDS: ENSURE CLEAR Apple 8oz Carton PO SCH ×3 (09:15→18:00)
[2021-03-06 09:38] LABS: Potassium 2.9 mmol/L (3.5-5.1)
[2021-03-06] MEDS: PANTOPRAZOLE 40 MG/10 ML VIAL INJ IV SCH (10:10)
[2021-03-06] MEDS: ENOXAPARIN SOD 40 MG/0.4 ML SYRINGE SC SCH (10:10)
[2021-03-06] MEDS: Pro-Stat SF 30ml Vanilla PO SCH (10:10)
[2021-03-06] MEDS: ERTAPENEM SOD INJ 1 GM in SODIUM CHL 0.9% 50 ML IV SCH (10:23)
[2021-03-06] MEDS: DOCUSATE ORAL LIQUID 100 MG/10 ML UD GT SCH ×2 (10:49→22:28)
[2021-03-06] MEDS: TERIFLUNOMIDE 14 MG PO SCH (10:49)
[2021-03-06 13:24] VITALS: BP 146/78
[2021-03-06] MEDS ORDERED: POTASSIUM CHLORIDE 40 MEQ in D5W 5% 1,000 ML IV SCH (16:15)
[2021-03-06] MEDS ORDERED: POTASSIUM CHL 20MEQ/100ML 100 ML IV SCH (16:30)
[2021-03-06 16:59] VITALS: BP 139/81
[2021-03-06] MEDS ORDERED: POTASSIUM CHLORIDE 40 MEQ, LIDOCAINE 1% (LOCAL ANESTH.) 4 ML in SODIUM CHL 0.9% 250 ML IV ONE (18:15)
[2021-03-06 21:58] VITALS: BP 170/99
[2021-03-07] MEDS: D5W/SOD CHL 0.45% 1,000 ML IV SCH ×2 (02:33→14:15)
[2021-03-07] MEDS: ACCU-CHEK COMFORT CURVE STRIP VI SCH ×6 (02:38→22:09)
[2021-03-07 05:58] LABS: Urine Bacteria NONE SEEN /hpf (None Seen); Urine Blood Negative /uL (Negative); Urine Budding Yeast FEW /hpf (None Seen); Urine Mucus FEW (None Seen); Urine Specific Gravity 1.011 (1.001-1.035); Urine WBC 17 /hpf (0 - 5)
[2021-03-07 06:00] VITALS: BP 160/75
[2021-03-07 06:40] LABS: Magnesium 1.9 mg/dL (1.6-2.6); Potassium 3.1 mmol/L (3.5-5.1)
[2021-03-07 06:58] LABS: Hematocrit 23.5 % (36.0-46.0)
[2021-03-07] MEDS: ENSURE CLEAR Apple 8oz Carton PO SCH ×3 (08:00→18:00)
[2021-03-07] MEDS ORDERED: POTASSIUM EFFERVESENT TAB 25 MEQ GT ONE (08:45)
[2021-03-07 09:00] VITALS: BP 162/89
[2021-03-07] MEDS: Pro-Stat SF 30ml Vanilla PO SCH (10:00)
[2021-03-07] MEDS: DOCUSATE ORAL LIQUID 100 MG/10 ML UD GT SCH ×2 (10:23→22:09)
[2021-03-07] MEDS: TERIFLUNOMIDE 14 MG PO SCH (10:24)
[2021-03-07] MEDS: PANTOPRAZOLE 40 MG/10 ML VIAL INJ IV SCH (10:24)
[2021-03-07] MEDS: ENOXAPARIN SOD 40 MG/0.4 ML SYRINGE SC SCH (10:25)
[2021-03-07 13:00] VITALS: BP 159/95
[2021-03-07] MEDS ORDERED: MAGNESIUM SULFATE 1GM/100ML 100 ML IV ONE (13:15)
[2021-03-07] MEDS ORDERED: POTASSIUM EFFERVESENT TAB 25 MEQ PO ONE (14:15)
[2021-03-07] MEDS ORDERED: FUROSEMIDE 20 MG/2 ML VIAL IV ONE (14:15)
[2021-03-07] MEDS ORDERED: amLODIPine BESYLATE 5 MG TAB PO SCH (14:29)
[2021-03-07 17:00] VITALS: BP 168/80
[2021-03-07 21:58] VITALS: BP 155/90
[2021-03-08] MEDS: ACCU-CHEK COMFORT CURVE STRIP VI SCH ×6 (03:43→22:00)
[2021-03-08 04:58] VITALS: BP 159/95
[2021-03-08] MEDS: hydrALAZINE HCL 20 MG/ML VL IV PRN (06:13)
[2021-03-08 07:21] LABS: Potassium 3.1 mmol/L (3.5-5.1)
[2021-03-08 07:30] LABS: Calcium 8.7 mg/dL (8.5-10.1); Magnesium 2.4 mg/dL (1.6-2.6)
[2021-03-08] MEDS: ENSURE CLEAR Apple 8oz Carton PO SCH ×3 (08:00→18:00)
[2021-03-08 09:00] VITALS: BP 133/71
[2021-03-08] MEDS ORDERED: POTASSIUM EFFERVESENT TAB 25 MEQ PO ONE (09:30)
[2021-03-08] MEDS: Pro-Stat SF 30ml Vanilla PO SCH (10:00)
[2021-03-08] MEDS: DOCUSATE ORAL LIQUID 100 MG/10 ML UD GT SCH ×2 (10:00→22:00)
[2021-03-08] MEDS: TERIFLUNOMIDE 14 MG PO SCH (10:44)
[2021-03-08] MEDS: PANTOPRAZOLE 40 MG/10 ML VIAL INJ IV SCH (10:44)
[2021-03-08] MEDS: ENOXAPARIN SOD 40 MG/0.4 ML SYRINGE SC SCH (10:45)
[2021-03-08] MEDS: amLODIPine BESYLATE 5 MG TAB PO SCH (10:45)
[2021-03-08 13:00] VITALS: BP 152/88
[2021-03-08] MEDS: D5W/SOD CHL 0.45% 1,000 ML IV SCH (14:16)
[2021-03-08 17:00] VITALS: BP 151/76
[2021-03-08] MEDS ORDERED: HYDROcodone-ACET 5/325MG TAB PO PRN (17:45)
[2021-03-08] MEDS ORDERED: MORPHINE SULFATE INJECTION 2 MG/ML SYRG IV PRN (17:45)
[2021-03-08 22:00] VITALS: BP 140/82
[2021-03-09] MEDS: ACCU-CHEK COMFORT CURVE STRIP VI SCH ×6 (02:00→21:03)
[2021-03-09 05:00] VITALS: BP 123/70
[2021-03-09] MEDS: D5W/SOD CHL 0.45% 1,000 ML IV SCH (06:09)
[2021-03-09 06:11] LABS: Hematocrit 26.3 % (36.0-46.0); Hemoglobin 8.8 g/dL (12.2-16.2)
[2021-03-09] MEDS: ENSURE CLEAR Apple 8oz Carton PO SCH ×3 (08:00→18:00)
[2021-03-09] MEDS ORDERED: POTASSIUM EFFERVESENT TAB 25 MEQ PO ONE ×2 (08:45→09:00)
[2021-03-09 09:00] VITALS: BP 140/64
[2021-03-09] MEDS: DOCUSATE ORAL LIQUID 100 MG/10 ML UD GT SCH ×2 (10:00→21:02)
[2021-03-09] MEDS: Pro-Stat SF 30ml Vanilla PO SCH (10:00)
[2021-03-09] MEDS: PANTOPRAZOLE 40 MG/10 ML VIAL INJ IV SCH (10:36)
[2021-03-09] MEDS: levoFLOXacin 750MG 150 ML IV SCH (10:36)
[2021-03-09] MEDS: TERIFLUNOMIDE 14 MG PO SCH (10:36)
[2021-03-09] MEDS: ENOXAPARIN SOD 40 MG/0.4 ML SYRINGE SC SCH (10:36)
[2021-03-09] MEDS: amLODIPine BESYLATE 5 MG TAB PO SCH (10:36)
[2021-03-09 17:00] VITALS: BP 147/81
[2021-03-10] MEDS ORDERED: ACETAMINOPHEN 325 MG TAB PO PRN (01:45)
[2021-03-10] MEDS: D5W/SOD CHL 0.45% 1,000 ML IV SCH (02:15)
[2021-03-10] MEDS: ACCU-CHEK COMFORT CURVE STRIP VI SCH ×6 (02:19→20:47)
[2021-03-10 05:00] VITALS: BP 140/94
[2021-03-10 07:40] LABS: Basophils # (auto) 0 10 ^3/uL (0-0.2); Eosinophils # (auto) 0 10 ^3/uL (0-0.8); Eosinophils % (auto) 0.5 % (0.0-7.0); Lymphocytes # (auto) 1.1 10 ^3/uL (0.4-5.4); Monocytes # (auto) 0.7 10 ^3/uL (0-1.3)
[2021-03-10 07:42] LABS: Basophils % (auto) 0.2 % (0.0-2.0); Hematocrit 26.1 % (36.0-46.0); Hemoglobin 8.5 g/dL (12.2-16.2); Lymphocytes % (auto) 11.3 % (10.0-50.0); Mean Corpuscular Hemoglobin 27.8 pg (28.0-32.0); Mean Corpuscular Hgb Conc. 32.5 g/dL (32.0-36.0); Mean Corpuscular Volume 85.8 fL (80.0-100.0); Neutrophils # (auto) 7.6 10 ^3/uL (1.6-8.6); Nucleated Red Blood Cells % 0.3 %; Red Blood Cells 3.04 10^6/uL (4.0-5.20); Red Cell Distribution Width 18.3 % (11.8-14.3); White Blood Cell 9.3 10^3/uL (4.4-10.8)
[2021-03-10 08:00] LABS: Calcium 8.7 mg/dL (8.5-10.1); Magnesium 2.4 mg/dL (1.6-2.6); Potassium 3.6 mmol/L (3.5-5.1)
[2021-03-10] MEDS: ENSURE CLEAR Apple 8oz Carton PO SCH ×3 (08:00→18:00)
[2021-03-10 08:02] LABS: BUN/Creatinine Ratio 23.4
[2021-03-10 09:00] VITALS: BP 158/76
[2021-03-10] MEDS: DOCUSATE ORAL LIQUID 100 MG/10 ML UD GT SCH ×2 (10:04→20:48)
[2021-03-10] MEDS: levoFLOXacin 750MG 150 ML IV SCH (10:04)
[2021-03-10] MEDS: TERIFLUNOMIDE 14 MG PO SCH (10:05)
[2021-03-10] MEDS: Pro-Stat SF 30ml Vanilla PO SCH (10:05)
[2021-03-10] MEDS: PANTOPRAZOLE 40 MG/10 ML VIAL INJ IV SCH (10:05)
[2021-03-10] MEDS: amLODIPine BESYLATE 5 MG TAB PO SCH (10:05)
[2021-03-10] MEDS: ENOXAPARIN SOD 40 MG/0.4 ML SYRINGE SC SCH (10:06)
[2021-03-10] MEDS: hydrALAZINE HCL 20 MG/ML VL IV PRN (10:37)
[2021-03-10 12:46] VITALS: BP 117/61
[2021-03-10] MEDS ORDERED: FUROSEMIDE 40 MG/4 ML VIAL IV ONE (13:00)
[2021-03-10] MEDS ORDERED: POTASSIUM CHL 20 Meq TABLET PO ONE (13:00)
[2021-03-10 17:00] VITALS: BP 117/56
[2021-03-10 22:00] VITALS: BP 118/63
[2021-03-11] MEDS: ACCU-CHEK COMFORT CURVE STRIP VI SCH ×4 (02:05→14:00)
[2021-03-11 05:00] VITALS: BP 137/77
[2021-03-11 06:21] LABS: Anion Gap 13 (5-15); Blood Urea Nitrogen 13 mg/dL (7-18); Calcium 8.8 mg/dL (8.5-10.1); Carbon Dioxide 22 mmol/L (21-32); Chloride 105 mmol/L (98-107); Glucose 77 mg/dL (74-106); Potassium 3.3 mmol/L (3.5-5.1); Sodium 140 mmol/L (136-145)
[2021-03-11 06:23] LABS: BUN/Creatinine Ratio 24.5; GFR African American 150 mL/min; GFR Non-African American 124 mL/min
[2021-03-11] MEDS: ENSURE CLEAR Apple 8oz Carton PO SCH ×2 (08:00→12:00)
[2021-03-11 09:00] VITALS: BP 128/75
[2021-03-11] MEDS: PANTOPRAZOLE 40 MG/10 ML VIAL INJ IV SCH (10:00)
[2021-03-11] MEDS: ENOXAPARIN SOD 40 MG/0.4 ML SYRINGE SC SCH (10:00)
[2021-03-11] MEDS: TERIFLUNOMIDE 14 MG PO SCH (10:00)
[2021-03-11] MEDS: Pro-Stat SF 30ml Vanilla PO SCH (10:00)
[2021-03-11] MEDS ORDERED: LEVO750T8 PO (10:54)
[2021-03-11] MEDS ORDERED: POTASSIUM EFFERVESENT TAB 25 MEQ PO ONE (11:00)
[2021-03-11] MEDS: levoFLOXacin 750MG 150 ML IV SCH (12:17)
[2021-03-11] MEDS: DOCUSATE ORAL LIQUID 100 MG/10 ML UD GT SCH (12:17)
[2021-03-11] MEDS: amLODIPine BESYLATE 5 MG TAB PO SCH (12:18)
[2021-03-11 13:00] VITALS: BP 115/65
== END 2021-03-11 15:57 | disposition home health service (06) | DRG 870 ==
LOC: ER 23:11 → TELE 02-18 06:49 → TELE-CENTR 02-20 11:43 → ICU WEST 02-27 07:47 → WEST WING 03-05 15:41 → TELE-WESTW 03-05 16:55
PROVIDERS: ADMIT Nurse Practitioner; ATTEND Internal Medicine
PROC: 05HC33Z Insertion of Infusion Device into Left Basilic Vein, Percutaneous Approach (ICD-10-PCS; 2021-02-19)
PROC: B54NZZA Ultrasonography of Left Upper Extremity Veins, Guidance (ICD-10-PCS; 2021-02-19)
PROC: 5A1955Z Respiratory Ventilation, Greater than 96 Consecutive Hours (ICD-10-PCS; principal; 2021-02-27)
PROC: 4A143B0 Monitoring of Venous Pressure, Central, Percutaneous Approach (ICD-10-PCS; 2021-02-27)
PROC: 02HV33Z Insertion of Infusion Device into Superior Vena Cava, Percutaneous Approach (ICD-10-PCS; 2021-02-27)
PROC: 0BH17EZ Insertion of Endotracheal Airway into Trachea, Via Natural or Artificial Opening (ICD-10-PCS; 2021-02-27)
PROC: 30233N1 Transfusion of Nonautologous Red Blood Cells into Peripheral Vein, Percutaneous Approach (ICD-10-PCS; 2021-03-03)
DX: A41.9 Sepsis, unspecified organism (principal); G93.41 Metabolic encephalopathy; J96.01 Acute respiratory failure with hypoxia; J18.9 Pneumonia, unspecified organism; J69.0 Pneumonitis due to inhalation of food and vomit; G82.20 Paraplegia, unspecified; J90 Pleural effusion, not elsewhere classified; J98.11 Atelectasis; Z16.12 Extended spectrum beta lactamase (ESBL) resistance; N39.0 Urinary tract infection, site not specified; G95.9 Disease of spinal cord, unspecified; E44.0 Moderate protein-calorie malnutrition; D69.6 Thrombocytopenia, unspecified; R68.0 Hypothermia, not associated with low environmental temperature; G35 Multiple sclerosis; K59.00 Constipation, unspecified; E16.2 Hypoglycemia, unspecified; B96.20 Unspecified Escherichia coli [E. coli] as the cause of diseases classified elsewhere; E87.6 Hypokalemia; E86.0 Dehydration; D63.8 Anemia in other chronic diseases classified elsewhere; I10 Essential (primary) hypertension; E27.8 Other specified disorders of adrenal gland; Z20.822 Contact with and (suspected) exposure to COVID-19; R32 Unspecified urinary incontinence; Z68.24 Body mass index [BMI] 24.0-24.9, adult; Z99.3 Dependence on wheelchair; Z87.440 Personal history of urinary (tract) infections
CPT/HCPCS: 36415; 36600; 70450; 70551; 70553; 71045; 71275; 72142; 74177; 76604; 76705; 80048; 80053; 80307; 81001; 82140; 82270; 82607; 82746; 82805; 82962; 83540; 83550; 83605; 83615; 83690; 83735; 83880; 84132; 84207; 84443; 84484; 85014; 85018; 85025; 85045; 85379; 85610; 86850; 86880; 86900; 86901; 86920; 87040; 87070; 87081; 87086; 87088; 87205; 87426; 92610; 93005; 93306; 94002; 94003; 94640; 95819; 96365; 96366; 96367; 97110; 97163; 97530; C9113; G0378; J0330; J1335; J1956; J2001; J2250; J2543; J3480